=== PATIENT | female | born 1995 | race Caucasian/White ===

== ENCOUNTER 2020-07-31 21:24 | Emergency (ER) | payer SELFPAY ==
[2020-07-31 22:29] LABS: BILIRUBIN NEGATIVE (NEGATIVE); BLOOD 3+ Ery/uL (NEGATIVE); CLARITY CLEAR (CLEAR); COLOR YELLOW (YELLOW); GLUCOSE (U) NORMAL (NORMAL); LEUKOCYTES 1+ Leu/uL (NEGATIVE); NITRITE NEGATIVE (NEGATIVE); PROTEIN NEGATIVE (NEGATIVE); SPECIFIC GRAVITY 1.015 (1.001-1.030); UROBILINOGEN 0.2 mg/dL (0.2-1.0); pH 7.5 (5.0-9.0)
[2020-07-31 22:36] LABS: BACTERIA TRACE; URINARY RBC 20-50; URINARY WBC RARE
[2020-07-31 22:43] LABS: BASOPHIL 0.9 % (0-2); HCT 38.3 % (37.0-47.0); LYMPHOCYTE 29.2 % (15-48); MCH 29.5 pg (25.0-31.0); MCHC 33.9 g/dL (32.0-36.0); MONOCYTE 7.3 % (0-12); MPV 8.6 fL (6.0-9.5); NEUTROPHIL 60.5 % (41-80); NRBC 0; PLT 382 K/uL (150-400); RDW 12.1 % (11.5-14.0); WBC 7.4 K/uL (4.0-10.5)
[2020-07-31 23:00] LABS: BUN/CREAT RATIO (CALC) 17.8 RATIO; CREATININE 0.73 mg/dL (0.51-0.95); POTASSIUM 3.7 mmol/L (3.5-5.1)
[2020-08-03 19:10] LABS: CHLAMYDIA TRACHOMATIS, NAA Negative (Negative); NEISSERIA GONORRHOEAE, NAA Negative (Negative)
== END 2020-07-31 23:45 | disposition home or self-care (01) ==
LOC: FER 21:24
PROVIDERS: Emergency Medicine
DX: N94.6 Dysmenorrhea, unspecified (principal); F17.210 Nicotine dependence, cigarettes, uncomplicated
CPT/HCPCS: 36415; 80048; 81001; 84703; 85025; 87210; 87491; 87591; 99284